=== PATIENT | male | born 1945 | race Caucasian/White ===

== ENCOUNTER 2025-05-29 14:49 | Outpatient (CLI) | payer MEDICARE, OTHER ==
[2025-05-29 15:33] LABS: CREATININE 1.10 MG/DL (0.60-1.10); TOTAL CARBON DIOXIDE 30.7 MMOL/L (24-32); eGFR 65 ML/MIN
== END 2025-05-29 23:59 | disposition home or self-care (01) ==
LOC: RAD 14:49
PROVIDERS: ATTEND Internal Medicine Interventional Cardiology
DX: E78.5 Hyperlipidemia, unspecified (principal)
CPT/HCPCS: 36415; 80048

== ENCOUNTER 2025-06-05 10:27 | Outpatient (CLI) | payer MEDICARE, OTHER ==
--- NOTE | 2025-06-05 13:22 | RADIOLOGY REPORT ---
INDICATION: OCCLUSION AND STENOSIS OF BILATERAL CAROTID ARTERIES COMPARISON: None TECHNIQUE: CTA neck with intravenous contrast. 3D image postprocessing was performed on a dedicated workstation and images were used for interpretation and reporting. Radiation Dose Information: CT Dose: CTDI volume is 18.4 mGy. Dose-length product is 569.5 mGy*cm FINDINGS: CTA neck: The visualized thoracic aortic arch and proximal great vessels are unremarkable. Approximately 90% stenosis of the proximal left internal carotid artery secondary to calcific and noncalcific plaque. Approximately 75% stenosis of the proximal right internal carotid artery secondary to presence of atherosclerotic plaque. Right vertebral artery is unremarkable. Faint to minimal flow is present in the proximal left with reconstituted normal flow at approximately the C3 vertebral body level. Multilevel degenerative changes of the spine. IMPRESSION: Approximately 90% stenosis of the proximal left internal carotid artery secondary to calcific and noncalcific plaque. Approximately 75% stenosis of the proximal right internal carotid artery secondary to presence of atherosclerotic plaque. Faint to minimal flow is present in the proximal left with reconstituted normal flow at approximately the C3 vertebral body level. All CT scans at this medical facility are performed using dose modulation techniques as appropriate to a performed exam including the following: Automated exposure control was utilized; adjustment of the MA and/or KV according to patient size; and use of iterative reconstruction technique.
== END 2025-06-05 23:59 | disposition home or self-care (01) ==
LOC: EDSEX → RAD 10:27
PROVIDERS: ATTEND Family Medicine
DX: I65.23 Occlusion and stenosis of bilateral carotid arteries (principal); M47.812 Spondylosis without myelopathy or radiculopathy, cervical region
CPT/HCPCS: 70498; Q9967